=== PATIENT | male | born 1975 | race African-American/Black ===

== ENCOUNTER 2024-03-18 00:53 | Emergency (ER) | payer MEDICAID ==
[~2024-03-18] VITALS: Ht 175.3 cm; Wt 86.2 kg
[2024-03-18 01:07] VITALS: BP_SYST 145; PULSE 87; RESP 18; TEMP 98.8; O2SAT 96
[2024-03-18] MEDS ORDERED: CEPH-548 PO (02:38)
[2024-03-18] MEDS ORDERED: IBUP-1969 PO (02:38)
[2024-03-18] MEDS: LIDOCAINE 1% 10 MG/ML, 20 ML MDV ID ONE (02:40)
[2024-03-18] MEDS ORDERED: HYDR-3917 PO (02:46)
[2024-03-18 03:15] VITALS: BP_SYST 145; PULSE 87; RESP 18; TEMP 98.8; O2SAT 96
[2024-03-18] MEDS: HYDROcodone/ACETAMIN 5-325 MG TAB (NORCO/ VICODIN) PO ONE (03:23)
== END 2024-03-18 03:20 | disposition home or self-care (01) ==
LOC: SED 00:53
DX: L03.011 Cellulitis of right finger (principal)
CPT/HCPCS: 73140; 99283